=== PATIENT | female | born 1965 | race Caucasian/White ===

== ENCOUNTER 2021-12-28 23:31 | Emergency (ER) | payer OTHER ==
[~2021-12-28] VITALS: Ht 157.5 cm; Wt 90.9 kg
[~2021-12-28 23:31] MED LIST: CEPHALEXIN500 M1 OR; CLARITIN10 MG OR; NO HOME MEDS; ULTRAM50 M1 PO; [UNRECOGNIZED DRUG - OTHER]
[2021-12-28 23:48] VITALS: BP 147/102
[2021-12-29 00:01] VITALS: BP 142/80
[2021-12-29] MEDS ORDERED: VOLTAREN75 MG PO (00:11)
[2021-12-29 00:16] VITALS: BP 147/86
== END 2021-12-29 00:29 | disposition home or self-care (01) | DRG 558 ==
LOC: ED 23:31
DX: M77.8 Other enthesopathies, not elsewhere classified (principal); I10 Essential (primary) hypertension